=== PATIENT | female | born 1935 | race Caucasian/White ===

== ENCOUNTER → 2020-09-23 | Outpatient (CLI) | payer MEDICARE ==
[~2020-09-23] MED LIST: OMNIPAQUE 350 MG/ML, 100ML BOTTLE ONE
== END | disposition home or self-care (01) ==
LOC: CFH 12:51
PROVIDERS: ATTEND Internal Medicine
DX: R59.0 Localized enlarged lymph nodes (principal); M50.322 Other cervical disc degeneration at C5-C6 level; K74.69 Other cirrhosis of liver; J90 Pleural effusion, not elsewhere classified; J98.11 Atelectasis
CPT/HCPCS: 70491; 71260; Q9967

== ENCOUNTER 2020-10-06 12:29 | Outpatient (CLI) | payer MEDICARE ==
[2020-10-06] MEDS ORDERED: LIDOCAINE-MPF 1%, 5ML ONE (13:00)
[2021-02-07] MEDS ORDERED: FURO20TA3 PO (10:17)
[2021-02-07] MEDS ORDERED: RIVA20TA PO (10:17)
== END 2020-10-06 23:59 | disposition home or self-care (01) ==
LOC: RAD 12:29
PROVIDERS: ATTEND Internal Medicine
DX: R22.1 Localized swelling, mass and lump, neck (principal)
CPT/HCPCS: 20206; 76942; 88305

== ENCOUNTER → 2021-02-07 | Outpatient (CLI) | payer MEDICARE ==
[~2021-02-07] MED LIST changes: +FURO20TA3 PO; -OMNIPAQUE 350 MG/ML, 100ML BOTTLE ONE; +RIVA20TA PO
[2021-02-07 10:39] LABS: ALANINE AMINOTRANSFERASE 61 U/L (12-78); ALBUMIN 2.6 g/dL (3.4-5.0); ANION GAP 10 mmol/L (5-15); CALCIUM 7.7 mg/dL (8.5-10.1); CHLORIDE 107 mmol/L (98-107)
[2021-02-07 10:47] LABS: ALKALINE PHOSPHATASE 644 U/L (45-117); BILIRUBIN,TOTAL 0.8 mg/dL (0.2-1.0); CREATININE 3.59 mg/dL (0.55-1.02)
== END | disposition home or self-care (01) ==
LOC: STAR 09:15
PROVIDERS: ATTEND Otolaryngology
DX: Z01.818 Encounter for other preprocedural examination (principal); D11.0 Benign neoplasm of parotid gland
CPT/HCPCS: 36415; 80053; 93005

== ENCOUNTER 2021-02-22 13:03 | Outpatient (CLI) | payer MEDICARE | END 2021-02-22 23:59 | disposition home or self-care (01) | LOC: CFH 13:03 | PROVIDERS: ATTEND Internal Medicine | DX: I71.4 Abdominal aortic aneurysm, without rupture (principal); R94.4 Abnormal results of kidney function studies | CPT/HCPCS: 76770 ==